=== PATIENT | female | born 1960 | race Caucasian/White ===

== ENCOUNTER 2021-04-24 13:10 | Emergency (ER) | payer OTHER ==
[~2021-04-24] VITALS: Ht 157.5 cm; Wt 77.1 kg
--- NOTE | ~2021-04-24 | EMS ---
[facility] [address] [place] [address] EMS Patient Care Report Name: MARI ARIAS Room #: PRE Héctor#: [id number] Admission: Attend Phys: Discharge: Date of : 60 Report #: [id number] THIS REPORT FOR: //name// Report Transmitted: 04/24/2021 12:52 EMS Care Summary [place], [place]/[facility] Incident [id number] @ 04/24/2021 12:38 Incident Location [address] [place] [address] Patient MARI ARIAS Female, 61 Years 1960 Patient Address [address] [place] [address] Patient History Diabetes,Hypertension (HTN),Depression,Anxiety, Patient Allergies No known allergies, Patient Medications Xanax, Chief Complaint Altered Mental Status Disposition Transported No Lights/[place] Dispatch Reason Falls Transported To [facility] Narrative [facility] dispatched for a 61 year old female conscious and breathing that had a fall. Patient is located inside the residence ambulating. Patient acknowledges EMS presence and is GCS14, AAOX1. Patient has a patent airway is breathing adequately with strong regular radial pulses. Skin is noted to be pale cool and [facility] [address] [place] [address] EMS Patient Care Report Name: MARI ARIAS Room #: SARAH Anaya#: [id number] Admission: Attend Phys: Discharge: Date of : 60 Report #: [id number] clammy. Patient advises of Headache. Family advises that they found the patient laying down on the floor in the bathroom. VS and ECG are obtained. Glucose check is conducted and results are 208mg/dL. Patient is noted to by hypertensive and tachycardia is noted. No blood thinners are found. [facility] personnel advise that they have located empty prescription medication bottles of Xanax and blood pressure medication that were filled on April 04. Patient is moved to the stretcher and secured in the fowlers position using seatbelts and rails. Patient is moved to the ambulance and placed on the monitor to obtain VS and 12 lead ECG. 12 lead ECG shows Sinus tachycardia. IV access is attempted in the left antecubital region using a 20G and is unsuccessful. Transport is initiated to [facility]. Assessment is conducted. Patient is GCS 14 and alert and oriented to person only. Patient is confused and hallucinations noted. Patient has a patent airway is breathing adequately with strong regular rapid pulses. Skin is warm pale and clammy. HEENT are WNL. Pupils are PERRL. Trachea is midline with no JVD noted. Chest wall is stable and intact with symmetrical rise and fall. Lung sounds are clear and equal. Abdomen is soft and nontender with no distention or rigidity noted. Pelvis is stable and intact with CMSX4 present. Stroke scale conducted is negative. Arrival at the receiving facility patient condition is stable and unchanged. Patient is offloaded and taken to ED room 7. RN is given report and signatures are obtained. Transfer of care is completed and [facility] returns to service. Initial Vitals @12:53P: 117,R: 20,BP: 153/68,Pain: 0/10,GCS: 14,SpO2: 94,Revised Trauma: 12,WV Suspected: false @12:42P: 129,R: 22,BP: 191/83,Pain: 0/10,GCS: 14,Glucose: 208,SpO2: 93,Revised Trauma: 12, @12:51P: 117,CO: 0,SpO2: 91, Assessments @13:03MENTAL:Person Oriented,Confused,SKIN:Pale,Other,HEENT:Head/Face: No Abnormalities,Eyes: No Abnormalities,Neck/Airway: No Abnormalities,LUNG SOUNDS:General: No Abnormalities,Left Upper: No Abnormalities,Right Upper: No Abnormalities,Left Lower: No Abnormalities,Right Lower: No Abnormalities,ABDOMEN:General: No Abnormalities,Left Upper: No Abnormalities,Right Upper: No Abnormalities,Left Lower: No Abnormalities,Right Lower: No Abnormalities,PELVIS//GI:No Abnormalities,EXTREMITIES:Left Arm: No Abnormalities,Right Arm: No Abnormalities,Left Leg: No Abnormalities,Right Leg: No Abnormalities,PULSE:NEURO:No Abnormalities, Impression Altered Mental Status [facility] [address] [place] [address] EMS Patient Care Report Name: MARI ARIAS Room #: PRE M.RMaia#: [id number] Admission: Attend Phys: Discharge: Date of : 60 Report #: [id number] Procedures @12:51 12-Lead ECG Response: UnchangedSucceeded @12:44 ALS Assessment Response: UnchangedSucceeded @12:55 IV Therapy - Saline Lock cc (20 ga) Site: Antecubital-Left Response: UnchangedFailed @12:45 3-Lead ECG Response: UnchangedSucceeded Timeline 12:35,Call Received 12:35,Dispatch Notified 12:38,Dispatched 12:38,En Route 12:41,On Scene 12:42,At Patient 12:42,BP: 191/83 M,PULSE: 129,RR: 22 R,SPO2: 93 Ox,ETCO2: ,B,PAIN: 0,GCS: 14, 12:44,ALS Assessment,Response: UnchangedSucceeded, 12:45,3-Lead ECG,Response: UnchangedSucceeded, 12:51,12-Lead ECG,Response: UnchangedSucceeded, 12:51,BP: / M,PULSE: 117,RR: R,SPO2: 91 Ox,ETCO2: ,BG: ,PAIN: ,GCS: , 12:53,BP: 153/68 M,PULSE: 117,RR: 20 R,SPO2: 94 Ox,ETCO2: ,BG: ,PAIN: 0,GCS: 14, 12:53,Depart Scene 12:55,IV Therapy - Saline Lock cc 20 ga Site: Antecubital-Left,Response: UnchangedFailed, 13:04,At Destination 13:18,Call Closed Disclaimer v1.1 Copyright 2020 [employer] This EMS Care Summary contains data elements from the applicable legal record (which may be displayed differently). It is designed to provide pertinent information for the following purposes: continuity of care, clinical quality, and state data reporting. The complete legal record is available to ED staff and administrators of the receiving hospital in [employer] Patient Tracker. All data is provided "as is."
[2021-04-24 13:39] LABS: ABSOLUTE NEUTROPHILS 12.7 thou/uL (1.4-8.2); BASOPHILS 0.8 % (0.0-2.0); EOSINOPHILS 0.9 % (0.0-3.0); HEMATOCRIT 46.4 % (37.0-47.0); HEMOGLOBIN 15.5 gm/dL (12.0-15.0); LYMPHOCYTES 13.8 % (24.0-44.0); MCH 30.8 pg (26.0-34.0); MCHC 33.4 g/dL (28.0-37.0); MCV 92.1 fL (80.0-100.0); MONOCYTES 5.3 % (1.0-8.0); PLATELET COUNT 226 thou/uL (150-400); POLYS 79.2 % (36.0-66.0); RBC 5.04 mil/uL (4.20-5.00); RDW 14.5 % (10.5-14.5)
[2021-04-24 13:53] LABS: CALCIUM 9.6 mg/dL (8.5-10.1); CREATININE 1.7 mg/dL (0.6-1.0); POTASSIUM 4.7 mmol/L (3.5-5.1)
[2021-04-24 13:59] LABS: ALBUMIN 4.1 g/dL (3.4-5.0); TOTAL BILIRUBIN 0.4 mg/dL (0.2-1.0); TOTAL PROTEIN 8.4 g/dL (6.4-8.2)
[2021-04-24 14:12] LABS: URINE BILIRUBIN NEGATIVE (Negative); URINE BLOOD NEGATIVE (Negative); URINE CLARITY CLEAR; URINE COLOR YELLOW; URINE GLUCOSE-RANDOM* NEGATIVE (Negative); URINE KETONES NEGATIVE (Negative); URINE LEUKOCYTES-REFLEX NEGATIVE (Negative); URINE NITRITE-REFLEX NEGATIVE (Negative); URINE PROTEIN (DIPSTICK) TRACE (Negative); URINE SPECIFIC GRAVITY >= 1.030 (1.005-1.035); URINE UROBILINOGEN 0.2 E.U./dl (0.2-1.0)
[2021-04-24 14:21] LABS: AMP/METHAMP Negative (Negative); BARBITURATES Negative (Negative); BENZODIAZEPINES POSITIVE (Negative); COCAINE Negative (Negative); METHADONE Negative (Negative); OPIATES POSITIVE (Negative); PCP Negative (Negative)
[2021-04-24] MEDS ORDERED: CHLORDIAZEPOXID25 M1 PO (18:37)
[2021-04-24 19:34] VITALS: BP 143/69
--- NOTE | 2021-04-28 07:12 | EKG ---
[address] [address] ELECTROCARDIOGRAM REPORT Name: MARI ARIAS Room #: DEP DEREK Anaya#: [id number] Admission: 04/24/21 Attend Phys: Discharge: 04/24/21 Date of : 60 Report #: [id number] [facility] ED Test Date: 2021-04-24 Test Time: 13:19:33 Pat Name: MARI ARIAS Department: Room: Gender: [employer] Scheduler: YESENIA : 1960 Requested By: Mackenzie Altamirano Order Number: [id number] MD: Timothy Fernandez Measurements Intervals [place] Rate: 115 P: 83 PA: 154 QRS: 66 QRSD: 78 T: 66 QT: 318 QTc: 440 Interpretive Statements Sinus tachycardia No previous ECG available for comparison Electronically Signed On 04-28-2021 7:11:51 DIGITAL COMMENTATOR by Timothy Fernandez [email or web address] <ELECTRONICALLY SIGNED> By: Timothy Fernandez MD, [facility] 04/28/21 0711 1319 1319 Timothy Fernandez MD, FACC /EPI
== END 2021-04-24 19:35 | disposition home or self-care (01) ==
LOC: ER 13:10
PROVIDERS: Emergency Medicine
DX: F15.23 Other stimulant dependence with withdrawal (principal); Z20.822 Contact with and (suspected) exposure to COVID-19; F11.23 Opioid dependence with withdrawal